=== PATIENT | female | born 1935 | race Caucasian/White ===

== ENCOUNTER 2016-11-04 18:29 | Inpatient (IN) | payer BC, MEDICARE ==
[~2016-11-04] VITALS: Ht 152.4 cm; Wt 73.0 kg
[~2016-11-04 18:29] MED LIST: ATOR40TA PO; CLOP75TA15 PO
--- NOTE | 2016-11-04 18:32 | NUR ---
pt daughter, fauzia galicia called and said thatthe pt pmd is paul alexander, at [facility].dr. maloney aware and called dr. alexander number.pt daughter phone is [phone]
--- NOTE | 2016-11-04 18:36 | NUR ---
Unable to reconcile home medications at this time. Unable to obtain information from patient or EMS.
--- NOTE | 2016-11-04 18:58 | NUR ---
REPORT GIVEN TO STARCHER AND TENTER RANGE FEEDER RN. PRBC's ARE READY ACCORDING TO LABORATORY CALL.
[2016-11-04] MEDS ORDERED: TRAZ-144 PO (19:08)
[2016-11-04] MEDS ORDERED: ACET-2154 PO (19:08)
[2016-11-04] MEDS ORDERED: OMEP20CA10 PO (19:08)
[2016-11-04] MEDS ORDERED: DULO30CA2 PO (19:08)
[2016-11-04] MEDS ORDERED: DICLOFENAC GEL TOP (19:08)
[2016-11-04] MEDS ORDERED: MULT-67 PO (19:08)
[2016-11-04] MEDS ORDERED: ADVAIR INH (19:08)
[2016-11-04] MEDS ORDERED: OLOP2.5D5 EACHEYE (19:08)
[2016-11-04] MEDS ORDERED: CYANOCOBALAMIN PO (19:08)
[2016-11-04] MEDS ORDERED: NORCO PO (19:08)
[2016-11-04] MEDS ORDERED: MAXZIDE (19:08)
[2016-11-04] MEDS ORDERED: FLUT9.9S EA NOSTRIL (19:08)
[2016-11-04] MEDS ORDERED: BUPR300T52 PO (19:08)
--- NOTE | 2016-11-04 19:08 | NUR ---
Spoke with pt's daughter Lynette via telephone, obtained list of home medications and updated pt's record accordingly.
--- NOTE | 2016-11-04 19:20 | NUR ---
Received report from GUERLINE Capps. Assumed care of pt at this time. Pt resting in position of comfort for self. Resp even and unlabored. No obvious signs of distress, awaiting further eval. Addendum: 11/04/16 at 2211 by DEION Pt on the monitor upon assuming care. Pt NSR intermittent ST on the monitor. Resp even and unlabored. O2 sats 98 on RA
[2016-11-04] MEDS ORDERED: GENTAMICIN SULFATE INJ 80 MG in IV DEXTROSE 5% 100 ML IV ONE (19:45)
[2016-11-04] MEDS ORDERED: IV NORMAL SALINE 1000 ML BAG IV ONE (19:45)
[2016-11-04] MEDS ORDERED: CEFTRIAXONE 1 G in IV DEXTROSE 5% 50 ML IV ONE (19:45)
[2016-11-04] MEDS ORDERED: VANCOMYCIN IV 1,000 MG in IV DEXTROSE 5% 250 ML IV ONE (19:45)
[2016-11-04 20:02] LABS: BASOPHILS # (AUTO) 0.2 K/uL (0.0-8.0); BASOPHILS % (AUTO) 1.2 % (0.0-2.0); EOSINOPHILS % (AUTO) 0.1 % (0.0-7.0); HEMOGLOBIN 13.8 G/DL (12.0-16.0); LYMPHOCYTES # (AUTO) 0.7 K/UL (0.8-4.8); LYMPHOCYTES % (AUTO) 3.7 % (20.5-51.5); MEAN CORPUSCULAR HEMOGLOBIN 30.9 UUG (27.0-31.0); MEAN CORPUSCULAR HGB CONC 34 g/dL (32.0-37.0); MEAN CORPUSCULAR VOLUME 91.5 FL (81.0-99.0); MONOCYTES # (AUTO) 1.3 K/UL (0.1-1.30); MONOCYTES % (AUTO) 7.1 % (0.0-11.0); NEUTROPHILS # (AUTO) 15.9 K/UL (1.8-8.9); NEUTROPHILS % (AUTO) 87.9 % (38.5-71.5); PLATELET COUNT (AUTO) 263 K/UL (150-450); RED BLOOD CELL COUNT(AUTO) 4.48 MIL/UL (4.2-5.4); WHITE BLOOD COUNT (AUTO) 18.1 K/UL (4.0-11.2)
[2016-11-04 20:04] LABS: CARBON DIOXIDE 22 mmol/L (21-32); CHLORIDE 100 mmol/L (98-107); CREATININE 2.7 mg/dL (0.6-1.3); GLUCOSE 109 mg/dL (74-106); POTASSIUM 3.5 mmol/L (3.5-5.1); UREA NITROGEN, BLOOD 46 mg/dL (7-18)
[2016-11-04 20:16] LABS: ALANINE AMINOTRANSFERASE 16 U/L (14-59); ALKALINE PHOSPHATASE 152 U/L (50-136); ASPARTATE AMINOTRANSFERASE 15 U/L (15-37); BILIRUBIN,DIRECT 0.2 mg/dL (0.0-0.2); BILIRUBIN,TOTAL 0.6 mg/dL (0.2-1.0); TOTAL PROTEIN, SERUM 7.1 g/dL (6.4-8.2)
[2016-11-04 20:19] LABS: BAND % (MANUAL) 3 % (0-10); LYMPHOCYTES % (MANUAL) 4 % (20-40); NEUTROPHILS % (MANUAL) 84 % (42-75)
[2016-11-04 20:20] LABS: MONOCYTES % (MANUAL) 9 % (2-10)
--- NOTE | 2016-11-04 21:00 | NUR ---
Pt resting in position of comfort for self with eyes closed. Resp even and unlabored. No obvious signs of distress at this time
[2016-11-04] MEDS ORDERED: CEFTRIAXONE 1 G VIAL ONE (21:42)
[2016-11-04] MEDS ORDERED: GENTAMICIN SULFATE 80 MG/2 ML VIAL ONE (21:44)
[2016-11-04 21:55] LABS: *BILIRUBIN,URIN NEGATIVE (NEGATIVE); *BLOOD, URINE 1+ (NEGATIVE); *CLARITY,URINE SLIGHTLY CLOUDY (CLEAR); *COLOR,URINE LIGHT YELLOW (YELLOW); *KETONES,URINE NEGATIVE (NEGATIVE); *PROTEIN,URINE 1+ (NEGATIVE); *UROBILINOGEN,URINE 0.2 E.U./dl (NORMAL); LEUKOCYTE ESTERASE ,URINE 3+ (NEGATIVE); NITRITE, URINE NEGATIVE (NEGATIVE); UGLUCOSE NEGATIVE (NEGATIVE)
[2016-11-04 22:04] LABS: BACTERIA,URINE MODERATE /HPF (NONE SEEN); MUCUS,URINE MODERATE /LPF (0-FEW); WBC,URINE 80-100 /HPF (0-3)
--- NOTE | 2016-11-04 22:05 | NUR ---
First ABT infusion completed, no adverse reactions noted. Second ABT infusion started, will monitor for any adverse reactions. Pt c/o being cold and has shivers. Re-checked temp and pt afebrile at this time. Pt given warm blankets. Pt repositioned for comfort. Admission pending.
[2016-11-04] MEDS ORDERED: ONDANSETRON IV *ER 4 MG/2 ML VIAL IV ONE (23:30)
[2016-11-04] MEDS ORDERED: MORPHINE SULFATE 4 MG/1 ML DISP.SYRIN IV ONE (23:30)
--- NOTE | 2016-11-04 23:38 | NUR ---
Pt c/o back pain. MD notified and pt medicated. Will monitor for effects of medication. Daughter arrived at bedside.
[2016-11-04] MEDS ORDERED: MORPHINE SULFATE 4 MG/1 ML DISP.SYRIN ONE (23:40)
[2016-11-04] MEDS ORDERED: ONDANSETRON 4 MG/2 ML VIAL ONE (23:40)
[2016-11-04] MEDS ORDERED: MORPHINE SULFATE 4 MG/1 ML DISP.SYRIN IV PRN (23:45)
[2016-11-04] MEDS ORDERED: ONDANSETRON 4 MG/2 ML VIAL IV PRN (23:45)
[2016-11-04] MEDS ORDERED: POTASSIUM CHLORIDE 20 MEQ in IV NS 1000 ML 1,000 ML IV PRN (23:45)
[2016-11-04] MEDS ORDERED: ACETAMINOPHEN 325 MG TABLET PO PRN (23:45)
[2016-11-05] VITALS (14 sets, daily range): BP systolic 63–120; BP diastolic 35–65
--- NOTE | 2016-11-05 | NUR ---
Second ABT completed, no adverse reactions noted. Pt sts pain improved with previous medication. No complaints at this time. Report called to GUERLINE Jewell. Preparing to transfer pt to the floor.
--- NOTE | 2016-11-05 00:20 | NUR ---
PT ADMITTED TO TELE FROM ED. PT IS A&OX4. RESP IS EVEN AND UNLABORED AT THIS TIME. RESP IS EVEN AND UNLABORED. NO SOB. NO ACUTE DISTRESS. PT WITH LEFT FA 18GAUGE IV, PATENT AND INTACT. PT WITH UROSTOMY POUCH, PATENT AND INTACT DRAINING YELLOW, CLEAR URINE. ORIENTED PT TO UNIT AND CALL LIGHT. CALL LIGHT KEPT WITHIN REACH. WILL CONT TO MONITOR.
[2016-11-05] MEDS: TRAZODONE 50 MG TABLET PO SCH ×2 (00:29→20:55)
[2016-11-05] MEDS: ACETAMINOPHEN 325 MG TABLET PO PRN ×3 (00:29→18:27)
[2016-11-05] MEDS ORDERED: ZOLPIDEM 5 MG TABLET PO PRN (00:30)
[2016-11-05] MEDS ORDERED: TRAZODONE 50 MG TABLET ONE (00:37)
[2016-11-05] MEDS ORDERED: ACETAMINOPHEN 325 MG TABLET ONE (00:37)
[2016-11-05] MEDS ORDERED: PIPERACILLIN/TAZO 2.25 GM VIAL ONE (00:49)
[2016-11-05] MEDS: PIPERACILLIN/TAZOBACTAM/D5W 2.25 G in PREMIXED 1 EACH IV SCH ×4 (01:02→21:34)
--- NOTE | 2016-11-05 06:48 | NUR ---
PT IS A&OX4. RESP IS EVEN AND UNLABORED. NO SOB. NO ACUTE DISTRESS. PT WITH LEFT FA 18GAUGE IV, PATENT AND INTACT. PT WITH UROSTOMY POUCH, PATENT AND INTACT DRAINING YELLOW, CLEAR URINE. VSS. CALL LIGHT WITH IN REACH. WILL CONT TO MONITOR.
[2016-11-05] MEDS ORDERED: Medication Not On Formulary EA (Multivitamins 1 EACH) PO SCH (09:00)
[2016-11-05] MEDS ORDERED: DULOXETINE 30 MG CAPSULE.DR PO SCH (09:00)
[2016-11-05] MEDS: MULTIVITAMINS,THERAPEUTIC TABLET PO SCH (09:21)
[2016-11-05] MEDS: CLOPIDOGREL 75 MG TABLET PO SCH (09:22)
[2016-11-05] MEDS: PANTOPRAZOLE SODIUM 40 MG TABLET.DR PO SCH (09:22)
[2016-11-05] MEDS: buPROPion XL 150 MG TAB.SR.24H PO SCH (09:22)
[2016-11-05 09:31] LABS: EOSINOPHILS # (AUTO) 0.1 K/uL (0.0-0.7); EOSINOPHILS % (AUTO) 0.8 % (0.0-7.0); HEMATOCRIT 37.7 % (37-47); HEMOGLOBIN 12.6 G/DL (12.0-16.0); LYMPHOCYTES # (AUTO) 0.6 K/UL (0.8-4.8); LYMPHOCYTES % (AUTO) 3.8 % (20.5-51.5); MEAN CORPUSCULAR HEMOGLOBIN 31.1 UUG (27.0-31.0); MEAN CORPUSCULAR HGB CONC 33 g/dL (32.0-37.0); MEAN CORPUSCULAR VOLUME 93.1 FL (81.0-99.0); MONOCYTES # (AUTO) 0.9 K/UL (0.1-1.30); NEUTROPHILS # (AUTO) 13.3 K/UL (1.8-8.9); NEUTROPHILS % (AUTO) 89.4 % (38.5-71.5); PLATELET COUNT (AUTO) 214 K/UL (150-450); RED BLOOD CELL COUNT(AUTO) 4.05 MIL/UL (4.2-5.4); WHITE BLOOD COUNT (AUTO) 14.9 K/UL (4.0-11.2)
[2016-11-05 09:38] LABS: ALANINE AMINOTRANSFERASE 19 U/L (14-59); ALKALINE PHOSPHATASE 119 U/L (50-136); ASPARTATE AMINOTRANSFERASE 13 U/L (15-37); BILIRUBIN,TOTAL 0.4 mg/dL (0.2-1.0); CARBON DIOXIDE 19 mmol/L (21-32); CHLORIDE 103 mmol/L (98-107); CHOLESTEROL 109 mg/dL (<200); CREATININE 3.1 mg/dL (0.6-1.3); GLUCOSE 192 mg/dL (74-106); HDL CHOLESTEROL 58 mg/dL (40-60); MAGNESIUM 1.9 mg/dL (1.8-2.4); PHOSPHOROUS 2.8 mg/dL (2.5-4.9); POTASSIUM 3.4 mmol/L (3.5-5.1); TOTAL PROTEIN, SERUM 6.1 g/dL (6.4-8.2); TRIGLYCERIDES 102 MG/DL (30-150); UREA NITROGEN, BLOOD 41 mg/dL (7-18)
[2016-11-05 09:45] LABS: THYROID STIMULATING HORMONE 0.587 mIU/mL (0.358-3.740)
[2016-11-05] MEDS ORDERED: VANCOMYCIN IV 1,250 MG in IV DEXTROSE 5% 500 ML IV ONE (10:00)
[2016-11-05] MEDS ORDERED: POTASSIUM CHLORIDE 20 MEQ TAB.PRT.SR PO ONE (12:00)
--- NOTE | 2016-11-05 12:52 | NUR ---
PT COMPLAINING OF CHILLS AND VERY COLD, TEMP TAKEN 99.6. WILL GIVE TYLENOL ORDERED
[2016-11-05 14:11] LABS: *BILIRUBIN,URIN NEGATIVE (NEGATIVE); *BLOOD, URINE 1+ (NEGATIVE); *CLARITY,URINE SLIGHTLY CLOUDY (CLEAR); *COLOR,URINE YELLOW (YELLOW); *KETONES,URINE NEGATIVE (NEGATIVE); *PROTEIN,URINE 1+ (NEGATIVE); *UROBILINOGEN,URINE 0.2 E.U./dl (NORMAL); LEUKOCYTE ESTERASE ,URINE 2+ (NEGATIVE); NITRITE, URINE NEGATIVE (NEGATIVE); UGLUCOSE NEGATIVE (NEGATIVE)
[2016-11-05 14:20] LABS: BACTERIA,URINE FEW /HPF (NONE SEEN); SQUAMOUS EPITHELIAL CELL,UR FEW /HPF (NONE SEEN); WBC,URINE 20-50 /HPF (0-3)
[2016-11-05 14:23] LABS: *CREATININE,URINE 53.3 mg/dL (30-125)
--- NOTE | 2016-11-05 15:04 | NUR ---
Clinical Pharmacy Note: Vancomycin Pharmacy to Dose Subjective: To start vancomycin in this 80 y/o female for indication of UTI. Pt is not on HD, currently in ARF Objective: height 152 cm weight 77kg BUN 41 Scr 2.7 (ARF) Wbc 14.9 temp 101.7 Assessment/Plan Due to advanced age and ARF, will dose by fall off level. One dose of 1250mg given today @1000. Random ordered for tomorrow with am labs. Will check level and re-dose as needed. Will continue to monitor
--- NOTE | 2016-11-05 15:35 | NUR ---
ASSIGNMENT OFFICER TAKING ROUTINE VITALS, PT BP WAS 78/41 AND WAS RE TAKEN 63/35, PT AWAKE, ALERT, ASYMPTOMATIC, DR SANCHEZ AWARE AND ORDERED 500 NS BOLUS. BOLUS STARTED, BP 67/44, WILL CONTINUE TO CLOSELY MONITOR
[2016-11-05] MEDS ORDERED: IV NORMAL SALINE 500 ML IV ONE (15:45)
--- NOTE | 2016-11-05 16:23 | NUR ---
500 BOLUS GIVEN, BP 71/43. AWARE AND GAVE ORDERS TO TRANSFER TO ICU. PT TRANSFERRED TO ICU BED 5
[2016-11-05] MEDS ORDERED: TRAMADOL HCL 50 MG TABLET PO PRN (18:00)
[2016-11-05] MEDS: TRAMADOL HCL 50 MG TABLET PO PRN (18:35)
--- NOTE | 2016-11-05 19:30 | NUR ---
Report received. Patient VIK, hard of hearing but able to follow commands well. NAD noted. Seen by Emili IGLESIAS. Assessment done. See [facility] flow sheet for details. Addendum: 11/05/16 at 2352 by BONNIE CHU RN Amended: Links added.
--- NOTE | 2016-11-05 20:00 | NUR ---
Patient's daughter Lynette massey. Routine CCU care discussed with her and the patient. Both verbalized understanding. Addendum: 11/05/16 at 2358 by BONNIE CHU RN Amended: Links added.
[2016-11-05] MEDS: FLUTICASONE/VILANTEROL 1 EACH BLST.W.DEV INH SCH (20:30)
--- NOTE | 2016-11-05 20:30 | NUR ---
Dose of Brio-Ellipta given per patient's request. New IV inserted to LFA with angio # 20. Patient cooperative.
[2016-11-05] MEDS: POTASSIUM CHLORIDE 20 MEQ in IV D5/ 0.9% NACL 1,000 ML IV PRN (20:40)
--- NOTE | 2016-11-05 20:40 | NUR ---
IV started at 75 ml/H as ordered. Daughter remains at bedside. Requested for cereal and fruits. Ate well without problems. Addendum: 11/06/16 at 0254 by BONNIE CHU RN Amended: Links added. Addendum: 11/06/16 at 0258 by BONNIE CHU RN Amended: Links added.
[2016-11-05] MEDS: ATORVASTATIN 40 MG TABLET PO SCH (20:55)
[2016-11-05] MEDS ORDERED: FLUTICASONE/SALMETEROL 250/50 INHALER INH SCH (21:00)
[2016-11-06] VITALS (20 sets, daily range): BP systolic 84–118; BP diastolic 33–72
--- NOTE | 2016-11-06 01:40 | NUR ---
Patient called; shivering. Temp rechecked = 97.4. Requesting for Tylenol; given. Repositioned for comfort. Urostomy draining well. Addendum: 11/06/16 at 0258 by BONNIE CHU RN Amended: Links added.
[2016-11-06] MEDS: ACETAMINOPHEN 325 MG TABLET PO PRN ×4 (01:45→20:36)
--- NOTE | 2016-11-06 02:30 | NUR ---
Sleeping after Tylenol. VS stable. Addendum: 11/06/16 at 0259 by BONNIE CHU RN Amended: Links added. Addendum: 11/06/16 at 0301 by BONNIE CHU RN Amended: Links added.
[2016-11-06 05:33] LABS: EOSINOPHILS % (AUTO) 0.5 % (0.0-7.0); HEMATOCRIT 32.3 % (37-47); HEMOGLOBIN 10.9 G/DL (12.0-16.0); LYMPHOCYTES # (AUTO) 0.6 K/UL (0.8-4.8); LYMPHOCYTES % (AUTO) 6.2 % (20.5-51.5); MEAN CORPUSCULAR HEMOGLOBIN 31.6 UUG (27.0-31.0); MEAN CORPUSCULAR HGB CONC 34 g/dL (32.0-37.0); MEAN CORPUSCULAR VOLUME 93.6 FL (81.0-99.0); MONOCYTES # (AUTO) 0.8 K/UL (0.1-1.30); MONOCYTES % (AUTO) 8.5 % (0.0-11.0); NEUTROPHILS # (AUTO) 8.4 K/UL (1.8-8.9); NEUTROPHILS % (AUTO) 84.8 % (38.5-71.5); PLATELET COUNT (AUTO) 173 K/UL (150-450); RED BLOOD CELL COUNT(AUTO) 3.45 MIL/UL (4.2-5.4); WHITE BLOOD COUNT (AUTO) 9.8 K/UL (4.0-11.2)
[2016-11-06 05:38] LABS: CARBON DIOXIDE 20 mmol/L (21-32); CHLORIDE 104 mmol/L (98-107); GLUCOSE 122 mg/dL (74-106); MAGNESIUM 1.8 mg/dL (1.8-2.4); PHOSPHOROUS 3.5 mg/dL (2.5-4.9); UREA NITROGEN, BLOOD 38 mg/dL (7-18)
[2016-11-06] MEDS: PIPERACILLIN/TAZOBACTAM/D5W 2.25 G in PREMIXED 1 EACH IV SCH ×3 (05:56→21:53)
--- NOTE | 2016-11-06 06:00 | NUR ---
Bath given. BPs in the 80's systole. Patient AA, skin warm and dry. Denies any pain or discomfort. Addendum: 11/06/16 at 0658 by BONNIE CHU RN Amended: Links added.
--- NOTE | 2016-11-06 06:10 | NUR ---
Spoke to Peg Thomas NP about patient's hypotension and over all condition. Orders received. NS 500 ml IV bolus started. Addendum: 11/06/16 at 0700 by BONNIE CHU RN Amended: Links added. Addendum: 11/06/16 at 0701 by BONNIE CHU RN Amended: Links added.
[2016-11-06] MEDS ORDERED: IV NORMAL SALINE 500 ML IV ONE (06:15)
[2016-11-06] MEDS ORDERED: NOREPINEPHRINE BITARTRATE 8 MG in IV DEXTROSE 5% 500 ML IV PRN (06:15)
[2016-11-06] MEDS: PANTOPRAZOLE SODIUM 40 MG TABLET.DR PO SCH (06:35)
--- NOTE | 2016-11-06 07:00 | NUR ---
BP improved with NS bolus. Sleeping. NAD noted.
[2016-11-06] MEDS: CLOPIDOGREL 75 MG TABLET PO SCH ×2 (08:46→09:42)
[2016-11-06] MEDS: MULTIVITAMINS,THERAPEUTIC TABLET PO SCH (08:47)
[2016-11-06] MEDS: FLUTICASONE/VILANTEROL 1 EACH BLST.W.DEV INH SCH (08:50)
[2016-11-06] MEDS: buPROPion XL 150 MG TAB.SR.24H PO SCH (09:18)
[2016-11-06 09:21] LABS: IRON, SERUM 10 ug/dL (50-175)
[2016-11-06] MEDS: POTASSIUM CHLORIDE 20 MEQ in IV D5/ 0.9% NACL 1,000 ML IV PRN (10:35)
[2016-11-06] MEDS: SOD FERRIC GLUC COMPLX/SUCROSE 125 MG in IV NORMAL SALINE 100 ML IV SCH (15:07)
[2016-11-06] MEDS: TRAMADOL HCL 50 MG TABLET PO PRN (15:33)
--- NOTE | 2016-11-06 15:47 | NUR ---
Clinical Pharmacy Note: Vancomycin Pharmacy to Dose Subjective: To continue vancomycin in this 80 y/o female for indication of UTI. Pt is not on HD, currently in ARF Objective: height 152 cm weight 77kg BUN 38 Scr 3.0 (ARF) Wbc 9.8 temp 99.3 vancomycin trough today at 0600:12.1 Assessment/Plan Due to advanced age and ARF, will dose by fall off level. One dose of 1250mg given today @1600. Random ordered for tomorrow with am labs. Will check level and re-dose as needed. Will continue to monitor
[2016-11-06] MEDS ORDERED: VANCOMYCIN IV 1,250 MG in IV DEXTROSE 5% 500 ML IV ONE (16:00)
--- NOTE | 2016-11-06 19:30 | NUR ---
Report received. Patient AAO, denies any discomfort. NAD noted. PM care done. Patient cooperative and appreciative of care, but appears depressed. Assessment completed. Addendum: 11/06/16 at 2027 by BONNIE CHU RN Amended: Links added.
--- NOTE | 2016-11-06 20:00 | NUR ---
Radha visited. Informed that patient is now a telemetry status. Addendum: 11/06/16 at 2028 by BONNIE CHU RN Amended: Links added.
--- NOTE | 2016-11-06 20:35 | NUR ---
Tylenol given for generalized discomfort. Patient appears cooperative but withdrawn. Both daughters looking at IV bags that are hanging; claimed they spoke with MDs today, but questioning why she got a dose of Vancomycin. Demanded to talk to Emili TELEPHONE BETTING CLERK despite explanation offered. Emili paged.
[2016-11-06] MEDS: TRAZODONE 50 MG TABLET PO SCH (20:38)
[2016-11-06] MEDS: ATORVASTATIN 40 MG TABLET PO SCH (20:38)
--- NOTE | 2016-11-06 21:00 | NUR ---
Still awaiting for call back from Emili IGLESIAS. Patient now sleeping. NAD.
--- NOTE | 2016-11-06 21:25 | NUR ---
Emili ELECTRICAL PRODUCTS ENGINEER called back, but both daughters have left. Emili informed of daughters' queries.
[2016-11-07] VITALS (8 sets, daily range): BP systolic 90–118; BP diastolic 51–69
--- NOTE | 2016-11-07 02:00 | NUR ---
Awake, c/o generalized discomfort; with audible wheezing. O2 NC 2 L started. HOB elevated above 30 degrees. Requesting for Tylenol and hot tea. Medication given. Hot tea served. Patient states she uses Advair puffs at home and works best for her. Patient advised that she's on Breo-Ellipta. O2 sat 94-95% on 2 L NC. Addendum: 11/07/16 at 0424 by BONNIE CHU RN Amended: Links added.
[2016-11-07] MEDS: ACETAMINOPHEN 325 MG TABLET PO PRN ×4 (02:03→23:30)
--- NOTE | 2016-11-07 02:30 | NUR ---
Patient claims she feels better with O2 NC. Repositioned for comfort. Back to sleep. Addendum: 11/07/16 at 0428 by BONNIE CHU RN Amended: Links added.
[2016-11-07] MEDS: PIPERACILLIN/TAZOBACTAM/D5W 2.25 G in PREMIXED 1 EACH IV SCH ×3 (05:23→21:01)
[2016-11-07 05:40] LABS: CARBON DIOXIDE 16 mmol/L (21-32); CHLORIDE 105 mmol/L (98-107); CREATININE 2.8 mg/dL (0.6-1.3); GLUCOSE 104 mg/dL (74-106); MAGNESIUM 1.8 mg/dL (1.8-2.4); PHOSPHOROUS 3.2 mg/dL (2.5-4.9); UREA NITROGEN, BLOOD 30 mg/dL (7-18); VANCOMYCIN,RANDOM 22.4 ug/mL (18.0-26.0)
[2016-11-07 05:42] LABS: EOSINOPHILS # (AUTO) 0.1 K/uL (0.0-0.7); HEMATOCRIT 33.3 % (37-47); HEMOGLOBIN 11.1 G/DL (12.0-16.0); LYMPHOCYTES # (AUTO) 0.7 K/UL (0.8-4.8); LYMPHOCYTES % (AUTO) 10.1 % (20.5-51.5); MEAN CORPUSCULAR HEMOGLOBIN 30.9 UUG (27.0-31.0); MEAN CORPUSCULAR HGB CONC 33 g/dL (32.0-37.0); MEAN CORPUSCULAR VOLUME 93.1 FL (81.0-99.0); MONOCYTES # (AUTO) 0.8 K/UL (0.1-1.30); MONOCYTES % (AUTO) 11.3 % (0.0-11.0); NEUTROPHILS # (AUTO) 5.5 K/UL (1.8-8.9); NEUTROPHILS % (AUTO) 77.6 % (38.5-71.5); PLATELET COUNT (AUTO) 164 K/UL (150-450); RED BLOOD CELL COUNT(AUTO) 3.58 MIL/UL (4.2-5.4); WHITE BLOOD COUNT (AUTO) 7.1 K/UL (4.0-11.2)
--- NOTE | 2016-11-07 06:00 | NUR ---
Sleeping, easily arouses to name. ANTHONY. Refused bath and am care. Remains on O2 @ 2L NC.; sat 95-98%. Addendum: 11/07/16 at 0649 by BONNIE CHU RN Amended: Links added.
[2016-11-07] MEDS: PANTOPRAZOLE SODIUM 40 MG TABLET.DR PO SCH (06:18)
[2016-11-07] MEDS: POTASSIUM CHLORIDE 20 MEQ in IV D5/ 0.9% NACL 1,000 ML IV PRN (06:19)
--- NOTE | 2016-11-07 07:30 | NUR ---
Report received.Pt remains awake,alert,oriented.Cooperative,appreciative of care.Denies pain,discomfort.SR on monitor.O2 at 2liters via NC tolerated well.AM care completed with moderate assistance.Spoke with pt daughter Teo,updated on pt status.
[2016-11-07] MEDS: FLUTICASONE/VILANTEROL 1 EACH BLST.W.DEV INH SCH (09:00)
[2016-11-07] MEDS: buPROPion XL 150 MG TAB.SR.24H PO SCH (09:24)
[2016-11-07] MEDS: MULTIVITAMINS,THERAPEUTIC TABLET PO SCH (09:25)
[2016-11-07] MEDS ORDERED: MAGNESIUM SULFATE/D5W 100 ML IV SCH (09:30)
[2016-11-07] MEDS: ADVAIR INH SCH ×2 (09:41→17:03)
[2016-11-07] MEDS: MDI INH SCH ×2 (09:41→17:03)
--- NOTE | 2016-11-07 10:00 | NUR ---
Pt assisted to chair,tolerated well.Pt daughter at bedside.
[2016-11-07] MEDS ORDERED: ALBUTEROL SULFATE 1.25 MG/3 ML NEBU NEB PRN (11:00)
[2016-11-07] MEDS ORDERED: ALBUTEROL SULFATE 8 GM HFA.AER.AD IH PRN (11:00)
--- NOTE | 2016-11-07 11:17 | NUR ---
BROUGHT PT TO ROOM 203 IN WHEELCHAIR, NO SIGNS OF ACUTE DISTRESS, REQUESTED TO GO TO RESTROOM TO TRY AND HAVE BM. SR ON TELE MONITOR, IV INTACT, UROSTOMY INTACT, NO SIGNS OF LEAKING. DAUGHTER AT BEDSIDE, CALL LIGHT IN REACH, WILL CONTINUE TO MONITOR
[2016-11-07] MEDS ORDERED: BISACODYL 10 MG SUPP.RECT RC PRN (11:30)
[2016-11-07] MEDS ORDERED: ALBUTEROL SULFATE 2.5 MG/3 ML NEBU NEB PRN (11:30)
--- NOTE | 2016-11-07 13:11 | NUR ---
PT AMBULATING IN HALLWAY WITH FWW AND DAUGHTER. NO DIZZINESS OR SOB
[2016-11-07] MEDS: SOD FERRIC GLUC COMPLX/SUCROSE 125 MG in IV NORMAL SALINE 100 ML IV SCH (14:47)
--- NOTE | 2016-11-07 16:49 | NUR ---
pt iv leaking while ferrlicit running. stopped iv, attempted to reinsert iv 5 times by [address] aware and ordered midline insertion. will resume ferrlicit when midline inserted. midline nurse contacted, will be here in 1 hour
--- NOTE | 2016-11-07 18:12 | NUR ---
BOBO PICC LINE NURSE INSERTED 18G POWERGLIDE MIDLINE ON R BASILIC VEIN, 10CM LENGTH. NO APPARENT DIFFICULTY DURING INSERTION. FLUSH AND BLOOD DRAW EXCELLENT.
[2016-11-07] MEDS: ATORVASTATIN 40 MG TABLET PO SCH (20:53)
[2016-11-07] MEDS: TRAZODONE 50 MG TABLET PO SCH (20:53)
[2016-11-08] VITALS: BP 142/68
[2016-11-08 04:00] VITALS: BP 108/51
[2016-11-08] MEDS: PIPERACILLIN/TAZOBACTAM/D5W 2.25 G in PREMIXED 1 EACH IV SCH (05:38)
[2016-11-08] MEDS: ACETAMINOPHEN 325 MG TABLET PO PRN ×2 (05:46→15:57)
[2016-11-08] MEDS: PANTOPRAZOLE SODIUM 40 MG TABLET.DR PO SCH (06:23)
--- NOTE | 2016-11-08 06:35 | NUR ---
PT IN BED, A/O, AMBULATED TO BATHROOM. ON SR ON TELE, IN NO ACUTE SIGNS OF DISTRESS. C/O LEFT LEG PAIN AND HEADACHE. GIVEN WITH TYLENOL PER PT REQUEST, AND WAS HELPFUL. SAFETY MAINTAINED. CALL LIGHT WITHIN REACH.
[2016-11-08 07:11] LABS: ALANINE AMINOTRANSFERASE 29 U/L (14-59); ALKALINE PHOSPHATASE 171 U/L (50-136); ASPARTATE AMINOTRANSFERASE 26 U/L (15-37); BILIRUBIN,TOTAL 0.3 mg/dL (0.2-1.0); CARBON DIOXIDE 17 mmol/L (21-32); CHLORIDE 107 mmol/L (98-107); CREATININE 2.5 mg/dL (0.6-1.3); GLUCOSE 95 mg/dL (74-106); MAGNESIUM 2.3 mg/dL (1.8-2.4); PHOSPHOROUS 3.1 mg/dL (2.5-4.9); POTASSIUM 4.2 mmol/L (3.5-5.1); UREA NITROGEN, BLOOD 26 mg/dL (7-18)
[2016-11-08 07:16] LABS: BASOPHILS % (AUTO) 0.2 % (0.0-2.0); EOSINOPHILS # (AUTO) 0.1 K/uL (0.0-0.7); EOSINOPHILS % (AUTO) 0.9 % (0.0-7.0); HEMATOCRIT 33.8 % (37-47); HEMOGLOBIN 11.5 G/DL (12.0-16.0); LYMPHOCYTES % (AUTO) 15.8 % (20.5-51.5); MEAN CORPUSCULAR HEMOGLOBIN 31.8 UUG (27.0-31.0); MEAN CORPUSCULAR HGB CONC 34 g/dL (32.0-37.0); MEAN CORPUSCULAR VOLUME 93.7 FL (81.0-99.0); MONOCYTES # (AUTO) 0.9 K/UL (0.1-1.30); MONOCYTES % (AUTO) 14.1 % (0.0-11.0); NEUTROPHILS # (AUTO) 4.2 K/UL (1.8-8.9); WHITE BLOOD COUNT (AUTO) 6.2 K/UL (4.0-11.2)
[2016-11-08 07:26] LABS: PLATELET COUNT (AUTO) 209 K/UL (150-450)
--- NOTE | 2016-11-08 08:00 | NUR ---
COMPLET SHOWER GIVEN WITH MIN ASSIST, UROSTOMY DRESSING ALSO CHANGED, NO SIGNS OF PAIN OR DISTRESS
[2016-11-08] MEDS: ADVAIR INH SCH (08:37)
[2016-11-08] MEDS: MULTIVITAMINS,THERAPEUTIC TABLET PO SCH (08:37)
[2016-11-08] MEDS: MDI INH SCH (08:37)
[2016-11-08] MEDS: buPROPion XL 150 MG TAB.SR.24H PO SCH (08:38)
[2016-11-08] MEDS: FLUTICASONE/VILANTEROL 1 EACH BLST.W.DEV INH SCH (08:40)
[2016-11-08] MEDS ORDERED: CLOPIDOGREL 75 MG TABLET PO SCH (09:00)
[2016-11-08] MEDS ORDERED: FLUT10.62 INH (09:23)
--- NOTE | 2016-11-08 10:00 | NUR ---
FAMILY IN VERY INVOLVED WITH CARE
[2016-11-08] MEDS ORDERED: PATIENT MAY USE OWN MED- MD OK IH SCH (10:15)
[2016-11-08 11:53] VITALS: BP 118/58
[2016-11-08] MEDS ORDERED: PIPERACILLIN/TAZOBACTAM/D5W 2.25 G in PREMIXED 1 EACH IV SCH (12:00)
--- NOTE | 2016-11-08 12:07 | NUR ---
SEEN BY DR MARTINEZ PLAN DC TO REHAB UNIT TODAY PATIENT AND FAMILY MADE AWARE. CASE JULES ALSO AWARE
[2016-11-08] MEDS ORDERED: PIPE2.257 IV (14:18)
[2016-11-08] MEDS ORDERED: ZOLP5TAB8 PO (14:18)
[2016-11-08] MEDS ORDERED: TRAM50TA2 PO (14:18)
[2016-11-08] MEDS ORDERED: CLOP75TA15 PO (14:18)
[2016-11-08] MEDS ORDERED: ATOR10TA PO (14:18)
[2016-11-08] MEDS ORDERED: ALBU2.5V7 NEB (14:18)
[2016-11-08] MEDS ORDERED: BISA10SU12 RC (14:18)
--- NOTE | 2016-11-08 15:48 | NUR ---
REPORT GIVEN TO ACUTE SPINNING ROOM WORKER. TRANSFERRED PATIENT VIA WHEELCHAIR WITH FAMILY
[2016-11-08] MEDS ORDERED: FLUT1DIS28 INH (18:53)
== END 2016-11-08 16:10 | DRG 871 ==
LOC: ER 18:30 → TELE 22:13 → CCU 11-05 16:21 → TELE 11-07 11:30
PROVIDERS: ADMIT Internal Medicine; ATTEND Internal Medicine
PROC: 05H533Z Insertion of Infusion Device into Right Subclavian Vein, Percutaneous Approach (ICD-10-PCS; principal; 2016-11-07)
DX: A41.9 Sepsis, unspecified organism (principal); N17.0 Acute kidney failure with tubular necrosis; E43 Unspecified severe protein-calorie malnutrition; G92 Toxic encephalopathy; N39.0 Urinary tract infection, site not specified; K57.92 Diverticulitis of intestine, part unspecified, without perforation or abscess without bleeding; I13.0 Hypertensive heart and chronic kidney disease with heart failure and stage 1 through stage 4 chronic kidney disease, or unspecified chronic kidney disease; N13.30 Unspecified hydronephrosis; J98.11 Atelectasis; E87.1 Hypo-osmolality and hyponatremia; I50.32 Chronic diastolic (congestive) heart failure; G43.909 Migraine, unspecified, not intractable, without status migrainosus; K21.9 Gastro-esophageal reflux disease without esophagitis; Z90.6 Acquired absence of other parts of urinary tract; Z87.440 Personal history of urinary (tract) infections; Z85.51 Personal history of malignant neoplasm of bladder; Z79.899 Other long term (current) drug therapy; Z98.1 Arthrodesis status; Z88.8 Allergy status to other drugs, medicaments and biological substances; R32 Unspecified urinary incontinence; Z93.6 Other artificial openings of urinary tract status; E11.22 Type 2 diabetes mellitus with diabetic chronic kidney disease; E11.65 Type 2 diabetes mellitus with hyperglycemia; N18.9 Chronic kidney disease, unspecified; Z87.891 Personal history of nicotine dependence; M19.90 Unspecified osteoarthritis, unspecified site; E87.6 Hypokalemia; E78.5 Hyperlipidemia, unspecified; E66.3 Overweight; D50.9 Iron deficiency anemia, unspecified; I48.0 Paroxysmal atrial fibrillation; I70.0 Atherosclerosis of aorta; I11.0 Hypertensive heart disease with heart failure
CPT/HCPCS: 36415; 70030-TC; 71010; 76770; 82306; 83550; 83605; 83735; 84100; 84156; 84300; 84443; 85025; 85730; 87040; 87077; 87086; 93005; 97116; 97161; 97530; A4663; J0696; J1580; J2270; J2405; J2543; J2916; J3370; J3475; J3480; J3490; J7030; J7040; J7042; J7060

== ENCOUNTER 2016-11-08 14:08 | Inpatient (IN) | payer MEDICARE ==
[~2016-11-08] VITALS: Ht 152.4 cm; Wt 72.6 kg
[~2016-11-08 14:08] MED LIST changes: +ACET-2154 PO; +ADVAIR INH; +BUPR300T52 PO; +CYANOCOBALAMIN PO; +DICLOFENAC GEL TOP; +DULO30CA2 PO; +FLUT10.62 INH; +FLUT9.9S EA NOSTRIL; +MAXZIDE; +MULT-67 PO; +NORCO PO; +OLOP2.5D5 EACHEYE; +OMEP20CA10 PO; +TRAZ-144 PO
[2016-11-08] MEDS ORDERED: ALBU2.5V7 NEB (14:18)
[2016-11-08] MEDS ORDERED: ZOLP5TAB8 PO (14:18)
[2016-11-08] MEDS ORDERED: BISA10SU12 RC (14:18)
[2016-11-08] MEDS ORDERED: TRAM50TA2 PO (14:18)
[2016-11-08] MEDS ORDERED: CLOP75TA15 PO (14:18)
[2016-11-08] MEDS ORDERED: ATOR10TA PO (14:18)
[2016-11-08] MEDS ORDERED: PIPE2.257 IV (14:18)
[2016-11-08 16:00] VITALS: BP 139/76
[2016-11-08] MEDS ORDERED: Z GUARD REMEDY PASTE 57 GM TUBE TOP PRN (17:45)
[2016-11-08] MEDS ORDERED: ALBUTEROL SULFATE 2.5 MG/3 ML NEBU NEB PRN (18:15)
[2016-11-08] MEDS ORDERED: FLUTICASONE PROPIONATE 44 MCG INH PRN (18:15)
[2016-11-08] MEDS ORDERED: BISACODYL 10 MG SUPP.RECT RC PRN (18:15)
[2016-11-08] MEDS ORDERED: ZOLPIDEM 5 MG TABLET PO PRN (18:15)
[2016-11-08] MEDS ORDERED: TRAMADOL HCL 50 MG TABLET PO PRN (18:15)
--- NOTE | 2016-11-08 18:27 | NUR ---
Report received from RN on M/S floor, Darcy. To receive patient to room 103. Information and SBAR received and verified. Orders received from Dr. Lund and Dr. Vega. No further questions at this time. Patient came to unit via wheelchair, with 2 daughters. Patient transferred from wheelchair to chair in room with supervision via walker. No complaints of pain or signs of acute distress noted. All questions and needs met at this time. Call light placed within reach of patient. Safety and fall precautions maintained. Explained to patient and family members need to call nursing station to be supervised to ambulate or stand, not to ambulate on her own. Patient and family members verbalized understanding. No other questions from patient or family members at this time.
[2016-11-08] MEDS ORDERED: FLUT1DIS28 INH (18:53)
[2016-11-08] MEDS ORDERED: FLUTICASONE/SALMETEROL 250/50 INHALER INH SCH (19:00)
--- NOTE | 2016-11-08 19:20 | NUR ---
Received report from GUERLINE Machado. Pt currently in the bathroom having diarrhea. Daughter at the bedside. Pt is AOX4 ambulates to restroom independently. Pt has urostomy bag attached to aguilar bag. Assessment performed: Lungs sounds clear but diminished at the bases. Requested tea and sugar. Per pt, she takes care of her urostomy, offered help as needed, verbalized understanding.Denies any pain. Observed some bruises at bilateral arms (from IV per pt). Pt has Rt Midline, flushing well. Requested for lomotil for diarrhea, spoke to Dr. Lund and obtained orders for Lomotil.
[2016-11-08 20:00] VITALS: BP 134/77
[2016-11-08] MEDS ORDERED: PIPERACILLIN/TAZOBACTAM/D5W 2.25 G in PREMIXED 1 EACH IV SCH (20:00)
[2016-11-08] MEDS: TRAZODONE 50 MG TABLET PO SCH (21:34)
[2016-11-08] MEDS: ATORVASTATIN 10 MG TABLET PO SCH (21:34)
[2016-11-08] MEDS: ACIDOPHILUS/BULGARICUS CHEW TAB PO SCH (21:38)
[2016-11-08] MEDS: DIPHENOXYLATE HCL/ATROP SULF TABLET PO PRN (21:41)
[2016-11-08] MEDS ORDERED: DIPHENOXYLATE HCL/ATROP SULF TABLET ONE (21:47)
[2016-11-08] MEDS: FLOVENT 110 MCG INH PRN (21:51)
--- NOTE | 2016-11-08 22:00 | NUR ---
Lomotil was given as ordered. Hanged antibiotic (Zosyn was changed to Rocephin) Rocephin 1gm/50mls at 100mls/hr to rt midline. An hour ago given night meds including Trazadone for her sleep. Given Tylenol for leg pain.
[2016-11-08] MEDS ORDERED: CEFTRIAXONE 1 G VIAL ONE (22:07)
[2016-11-08] MEDS: ACETAMINOPHEN 325 MG TABLET PO PRN (22:20)
[2016-11-08] MEDS: CEFTRIAXONE 1 G in IV DEXTROSE 5% 50 ML IV SCH (22:24)
[2016-11-09] MEDS ORDERED: PIPERACILLIN/TAZO/D5W 2.25 GM FROZ.PIGGY IV SCH
--- NOTE | 2016-11-09 | NUR ---
Pt is resting comfortably. Breathing normally.
--- NOTE | 2016-11-09 04:00 | NUR ---
Resting/sleeping continuously.Continue rounds/monitor.
[2016-11-09] MEDS: ACIDOPHILUS/BULGARICUS CHEW TAB PO SCH ×3 (05:45→21:04)
[2016-11-09] MEDS: ACETAMINOPHEN 325 MG TABLET PO PRN (05:45)
[2016-11-09] MEDS: ADVAIR INH SCH ×2 (05:50→17:19)
[2016-11-09] MEDS: FLOVENT 110 MCG INH PRN ×2 (05:50→17:20)
--- NOTE | 2016-11-09 06:00 | NUR ---
Pt awake alert oriented x 4, given am meds including PRN Tylenol 650mg/po for left hop pain 11/01 non radiating, it started since she came to this hospital according to her. Offered to wash up or toothbrush, refused for now but it will do it later. Reviewed my goals for her and she mentioned her goals to me, she expressed excitement for her physical therapy. Her daughter will be bringing her some pants and and shoes.
--- NOTE | 2016-11-09 07:15 | NUR ---
Patient received from night nurse RN. Patient resting comfortably in bed, no signs of acute distress noted. VS WNL, no complaints of pain at this time. No other verbalized needs at this time. IV midline site to right UA, no signs of redness or swelling noted. IVF running at KVO rate. All safety and fall precautions maintained. Call light within reach.
[2016-11-09 07:30] VITALS: BP 115/56
[2016-11-09 07:33] LABS: BASOPHILS % (AUTO) 0.1 % (0.0-2.0); EOSINOPHILS # (AUTO) 0.1 K/uL (0.0-0.7); EOSINOPHILS % (AUTO) 1.9 % (0.0-7.0); HEMATOCRIT 34.7 % (37-47); HEMOGLOBIN 11.5 G/DL (12.0-16.0); LYMPHOCYTES # (AUTO) 1.1 K/UL (0.8-4.8); LYMPHOCYTES % (AUTO) 16.1 % (20.5-51.5); MEAN CORPUSCULAR HGB CONC 33 g/dL (32.0-37.0); MEAN CORPUSCULAR VOLUME 93.4 FL (81.0-99.0); MONOCYTES # (AUTO) 0.9 K/UL (0.1-1.30); NEUTROPHILS # (AUTO) 4.6 K/UL (1.8-8.9); NEUTROPHILS % (AUTO) 68.9 % (38.5-71.5); PLATELET COUNT (AUTO) 238 K/UL (150-450); RED BLOOD CELL COUNT(AUTO) 3.72 MIL/UL (4.2-5.4); WHITE BLOOD COUNT (AUTO) 6.7 K/UL (4.0-11.2)
[2016-11-09 07:51] LABS: CARBON DIOXIDE 17 mmol/L (21-32); CHLORIDE 109 mmol/L (98-107); CHOLESTEROL 106 mg/dL (<200); CREATININE 2.8 mg/dL (0.6-1.3); GLUCOSE 98 mg/dL (74-106); HDL CHOLESTEROL 38 mg/dL (40-60); MAGNESIUM 2.2 mg/dL (1.8-2.4); PHOSPHOROUS 3.3 mg/dL (2.5-4.9); POTASSIUM 3.7 mmol/L (3.5-5.1); TRIGLYCERIDES 132 MG/DL (30-150); UREA NITROGEN, BLOOD 22 mg/dL (7-18)
[2016-11-09] MEDS: DULOXETINE 30 MG CAPSULE.DR PO SCH (08:26)
[2016-11-09] MEDS: MULTIVITAMINS,THERAPEUTIC TABLET PO SCH (08:26)
[2016-11-09] MEDS: buPROPion XL 150 MG TAB.SR.24H PO SCH (08:26)
[2016-11-09] MEDS ORDERED: ACIDOPHILUS/BULGARICUS CHEW TAB PO SCH (09:00)
[2016-11-09] MEDS ORDERED: Medication Not On Formulary EA (Multivitamins 1 EACH) PO SCH (09:00)
[2016-11-09] MEDS: DIPHENOXYLATE HCL/ATROP SULF TABLET PO PRN (14:51)
--- NOTE | 2016-11-09 17:40 | NUR ---
1330 ASSUMED CARE FOR PT. PT. OOB TO CHAIR. DISCUSSED CARE PLAN. PT. PERFORMING OWN ADLS. ENC. TO CALL FOR ASSIST. 1729 PT. DISCOVERED PAINFUL REDNESS/LUMP/RASH TO LEFT ARM. WARM PACK APPLIED CONTINUE TO MONITOR. . GOOD APPETITE. UROSTOMY SELF CARE. Addendum: 11/09/16 at 1758 by ADRIAN JARVIS RN PT. NOW STATES MODERATE PAIN TO LEFT ARM AND CAN BE FELT UP THE ARM ON TOUCH. CALL PLACED TO
--- NOTE | 2016-11-09 19:30 | NUR ---
RECEIVED PATIENT SEATED IN THE CHAIR, MIDLINE RIGHT UPPER ARM INTACT, PATENT PREFER TO DO HER OWN UROSTOMY CARE, HUYNH BAG DRAINING WITH YELLOW COLOR URINE IN MODERATE AMOUNT. PATIENT LEFT ARM LUMP IS PRESENT WITH SLIGHT REDNESS NOTED, SWELLING CONTAIN ONLY ON THE SITE, NO FURTHER SWELLING NOTED AT THIS TIME, SKIN WARM AND DRY, COLOR WNL. PATIENT COMPLAIN OF PAIN WENT TOUCH THE SITE. DUPLEX STUDY HAS BEEN ORDERED, AND ORDER ROUTINE, WAITING FOR THE TECH.
[2016-11-09 20:00] VITALS: BP 143/81
[2016-11-09] MEDS: TRAZODONE 50 MG TABLET PO SCH (20:36)
[2016-11-09] MEDS: CEFTRIAXONE 1 G in IV DEXTROSE 5% 50 ML IV SCH (20:36)
[2016-11-09] MEDS: ATORVASTATIN 10 MG TABLET PO SCH (20:36)
--- NOTE | 2016-11-10 05:41 | NUR ---
PATIENT SLEPT MOST OF THE NIGHT, NO SOB NO CHEST PAIN NOTED, NO COMPLAIN OF PAIN AT THIS TIME, LEFT ARM LUMP STILL PRESENT REDNESS CONTAIN ON THE SITE, LEFT ARM SKIN WARM AND DRY, NO SIGNIFICANT CHANGES NOTED. AWAITING FOR DOPPLER STUDY TO BE DONE. R UPPER ARM MIDLINE INTACT, PATENT, ASSISTED WITH TOILETING, KEPT CLEAN AND DRY.
[2016-11-10] MEDS: ACIDOPHILUS/BULGARICUS CHEW TAB PO SCH ×3 (06:06→20:22)
[2016-11-10 08:00] VITALS: BP 134/79
[2016-11-10] MEDS: DULOXETINE 30 MG CAPSULE.DR PO SCH ×2 (09:00→09:03)
[2016-11-10] MEDS: MULTIVITAMINS,THERAPEUTIC TABLET PO SCH (09:01)
[2016-11-10] MEDS: ADVAIR INH SCH ×2 (09:01→17:08)
[2016-11-10] MEDS: CLOPIDOGREL 75 MG TABLET PO SCH (09:02)
[2016-11-10] MEDS: buPROPion XL 150 MG TAB.SR.24H PO SCH (09:03)
[2016-11-10] MEDS: FLOVENT 110 MCG INH PRN ×2 (09:06→17:08)
[2016-11-10] MEDS: DIPHENOXYLATE HCL/ATROP SULF TABLET PO PRN (09:10)
[2016-11-10] MEDS: ACETAMINOPHEN 325 MG TABLET PO PRN ×2 (09:22→23:06)
--- NOTE | 2016-11-10 11:31 | NUR ---
Denial Management Representative: SW met with patient and daughter at bedside to assess needs and provide support. Pt is an 80-year-old female who was transferred from [facility] to [facility] for CHF. Per pt's daughter, Lani the pt was admitted for various medical issues. Per chart, the pt was admitted to ARU specifically for functional decline and impaired mobility. SW mainly spoke with pt's daughter who provided collateral. Per daughter, the pt has always been independent prior to hospitalization. She stated the the pt has had a hx of medical issues, however she has managed to always recuperate and continue to ambulate for herself. Per daughter, the pt is able to drive and ambulate for herself. Pt's plan is to return back home and will benefit from additional caregiving at home. Pt's goal is to return back home. She expressed that she has been hospitalized for two weeks now, and verbalized she would like to return home soon. SW explained the importance of complying with rehab goals in order to return home once stable. Pt and daughter reported they may have a caregiving resource in mind, but agreed to additional referrals in order to plan for a safe transition home. Pt appeared resistant to caregiving resources, however at the end of interview agreed. Pt and daughter were also receptive to additional home health services at home if needed. Pt has a strong family support. SW provided supportive counseling to deal with patients depressive symptoms related to her decline in functioning. SW encouraged pt to comply with rehab goals. SW engaged in active listening and emotional support. SW will provided linkage to community resources (case management and caregiving referrals).
--- NOTE | 2016-11-10 13:44 | NUR ---
TEAM CONFERENCE MEETING 11/10/16
--- NOTE | 2016-11-10 18:16 | NUR ---
PT. OOB ALL SHIFT. PT/OT TX TODAY. AMBULATES WITH WALKER WITH SBA. FAIR TO GOOD APPETITE. LEFT FOREARM VASCULAR DOPPLER PERFORMED TODAY. HARRIS ERAZO AWARE OF [facility] SWELLING. PT. ENCOURAGED TO ELEVATE FEET THROUGHOUT SHIFT. TEAM CONFERENCE TODAY. FAMILY PRESENT. NO ACUTE DISTRESS NOTED.
[2016-11-10] MEDS: CEFTRIAXONE 1 G in IV DEXTROSE 5% 50 ML IV SCH (20:21)
[2016-11-10] MEDS: TRAZODONE 50 MG TABLET PO SCH (20:22)
[2016-11-10] MEDS: ATORVASTATIN 10 MG TABLET PO SCH (20:22)
[2016-11-10 20:24] VITALS: BP 133/73
[2016-11-11] MEDS: ACETAMINOPHEN 325 MG TABLET PO PRN ×2 (05:51→21:44)
[2016-11-11] MEDS: ACIDOPHILUS/BULGARICUS CHEW TAB PO SCH ×3 (05:51→21:49)
--- NOTE | 2016-11-11 06:18 | NUR ---
pt continue with antibiotics, urostomy draining well 800cc overnight. no significant changes,vss,afebrile,all needs attended.call light at reached.
--- NOTE | 2016-11-11 07:32 | NUR ---
midline flushes well but unable to draw blood, pt refused peripheral blood draw.
--- NOTE | 2016-11-11 08:00 | NUR ---
Patient received from retail shift supervisor RN. Patient resting comfortably in bed, no signs of acute distress noted. VS WNL, no complaints of pain at this time. Midline Picc on CHARLIE, patent and intact. All safety and fall precautions maintained. Call light within reach.
[2016-11-11 08:23] VITALS: BP 123/64
[2016-11-11] MEDS: DIPHENOXYLATE HCL/ATROP SULF TABLET PO PRN (09:27)
[2016-11-11] MEDS: DULOXETINE 30 MG CAPSULE.DR PO SCH (09:27)
[2016-11-11] MEDS: buPROPion XL 150 MG TAB.SR.24H PO SCH (09:27)
[2016-11-11] MEDS: MULTIVITAMINS,THERAPEUTIC TABLET PO SCH (09:27)
[2016-11-11] MEDS: ADVAIR INH SCH ×2 (09:28→16:37)
[2016-11-11] MEDS ORDERED: LEVOFLOXACIN 500 MG TABLET PO SCH (13:30)
[2016-11-11] MEDS ORDERED: LEVOFLOXACIN 250 MG TABLET PO SCH ×3 (13:45→20:00)
[2016-11-11] MEDS ORDERED: DIPHENOXYLATE HCL/ATROP SULF TABLET PO PRN (19:00)
--- NOTE | 2016-11-11 19:33 | NUR ---
Patient refused blood draw this Md stephanie notified.
[2016-11-11] MEDS ORDERED: CEFTRIAXONE 1 G in IV DEXTROSE 5% 50 ML IV SCH (21:00)
[2016-11-11] MEDS: TRAZODONE 50 MG TABLET PO SCH (21:19)
[2016-11-11] MEDS: ATORVASTATIN 10 MG TABLET PO SCH (21:19)
[2016-11-11 22:32] VITALS: BP 146/86
--- NOTE | 2016-11-12 03:35 | NUR ---
pt aaox4; vss; on RA LSC, no s/s of distress;no c.o pain at this time but pt c/o of FINNEGAN. tylenol administered providing some relief. on a cardiac diet; c/o of diarrhea. Lomotil administered as order. urostomy to drainage bag; pt self care and independent; ambulates with fww; seen today by PT and ambulated. generalized bruising noted to BUE secondary phlebotomy. CHARLIE midline iv DC'd; manual pressure and pressure dressing applied. pt tolerated will. dressing and skin kept clean dry and intack. no c.o pain at this time but pt c/o of FINNEGAN. tylenol administered providing some relief.POC discussed with pt, bed in low position and call light kept within reach. will continue to monitor. Addendum: 11/12/16 at 0433 by TAMIKO MENDOZA RN pt aaox4; vss; on RA LSC, no s/s of distress;no c.o pain at this time but pt c/o of FINNEGAN earlier. tylenol administered providing some relief. on a cardiac diet; c/o of diarrhea. Lomotil administered as order. urostomy to drainage bag; pt self care and independent; ambulates with fww; seen today by PT and ambulated. generalized bruising noted to BUE secondary to phlebotomy. CHARLIE midline iv DC'd; manual pressure and pressure dressing applied. pt tolerated will. dressing and skin kept clean dry and intack. no c.o pain at this time but pt c/o of FINNEGAN. tylenol administered providing some relief.POC discussed with pt, bed in low position and call light kept within reach. will continue to monitor. Addendum: 11/12/16 at 0638 by TAMIKO MENDOZA RN 11/12/2016 0548: pt c/o severe FINNEGAN, stiff neck, nausea and vomitting. bp 165/93 hr75 t 97.8 [id number] Sp02 96% on RA. Oncall physician notified and orders received. pt in CT at this time. will endorse to oncoming shift to call back Dr. Reyes with results of stat CT of the head.
[2016-11-12] MEDS: ACIDOPHILUS/BULGARICUS CHEW TAB PO SCH (05:22)
[2016-11-12] MEDS: ACETAMINOPHEN 325 MG TABLET PO PRN ×2 (05:22→10:34)
--- NOTE | 2016-11-12 08:00 | NUR ---
Received patient awake, alert, verbally responsive, coherent, afebrile, not in any form of acute distress. She denies any pain or discomfort at this time. Environmental safety check done. Assisted to her needs. Call light placed within reach.
[2016-11-12 08:39] VITALS: BP 143/81
--- NOTE | 2016-11-12 09:00 | NUR ---
Notified Dr. Slaughter regarding episode of increased BP from plant operator/shift supervisor and CT scan result done today as well as patient's concern of wanting to put back her previous BP med Maxzide 75/50mg 1/2 tab daily. MD ordered may give such medication with same previous dose and frequency. Patient made aware. Order carried out. VS: BP 143/81, P 68, RR 18, T 97.3, SpO2 97%.
[2016-11-12] MEDS: ADVAIR INH SCH (09:23)
[2016-11-12] MEDS: MULTIVITAMINS,THERAPEUTIC TABLET PO SCH (09:23)
[2016-11-12] MEDS: DULOXETINE 30 MG CAPSULE.DR PO SCH (09:23)
[2016-11-12] MEDS: CLOPIDOGREL 75 MG TABLET PO SCH (09:23)
[2016-11-12] MEDS: buPROPion XL 150 MG TAB.SR.24H PO SCH (09:25)
[2016-11-12] MEDS ORDERED: TRIAMTERENE/HCTZ 75-50 MG TABLET PO SCH (10:00)
[2016-11-12] MEDS ORDERED: ACID1TAB4 PO (11:25)
[2016-11-12] MEDS ORDERED: LEVO250T2 PO (11:25)
[2016-11-12] MEDS ORDERED: DIPH1TAB PO (11:25)
--- NOTE | 2016-11-12 13:00 | NUR ---
Patient expressed the desire to go home. Notified Hilda Quiles NP who is in the unit and stated at medical standpoint patient is ok to go home. Informed Dr. Lund and per MD patient is ok for discharge to home. Order carried out. SHEET METAL ROOFER did med recon and prescription. Discharge instructions and discharge papers including prescription provided to the patient. Daughter Lani made aware. All belongings provided to patient including meds from home. Assisted patient to the parking lot by JOSEPH via wheelchair. Patient picked up by Joie Freedman via private car. Patient remains alert, verbally responsive. coherent, afebrile, not in any form of acute distress. She denies any pain or discomfort at this time. Addendum: 11/12/16 at 1322 by RENO LEE RN Discharged patient to home with [employer].
== END 2016-11-12 13:00 | disposition home health service (06) | DRG 291 ==
LOC: SRC1 16:30 → UNDOADMIN 16:30
PROVIDERS: ADMIT Physical Medicine & Rehabilitation Pain Medicine; ATTEND Physical Medicine & Rehabilitation Pain Medicine
DX: I13.0 Hypertensive heart and chronic kidney disease with heart failure and stage 1 through stage 4 chronic kidney disease, or unspecified chronic kidney disease (principal); G92 Toxic encephalopathy; N17.9 Acute kidney failure, unspecified; N39.0 Urinary tract infection, site not specified; N13.30 Unspecified hydronephrosis; I50.32 Chronic diastolic (congestive) heart failure; T82.868A Thrombosis due to vascular prosthetic devices, implants and grafts, initial encounter; N18.9 Chronic kidney disease, unspecified; G43.909 Migraine, unspecified, not intractable, without status migrainosus; Z85.51 Personal history of malignant neoplasm of bladder; I25.10 Atherosclerotic heart disease of native coronary artery without angina pectoris; M19.90 Unspecified osteoarthritis, unspecified site; Z87.440 Personal history of urinary (tract) infections; Z87.891 Personal history of nicotine dependence; I48.0 Paroxysmal atrial fibrillation; K21.9 Gastro-esophageal reflux disease without esophagitis; G89.29 Other chronic pain; M54.9 Dorsalgia, unspecified; R26.9 Unspecified abnormalities of gait and mobility; R53.1 Weakness; E78.5 Hyperlipidemia, unspecified; B96.1 Klebsiella pneumoniae [K. pneumoniae] as the cause of diseases classified elsewhere; Y83.8 Other surgical procedures as the cause of abnormal reaction of the patient, or of later complication, without mention of misadventure at the time of the procedure; Y92.239 Unspecified place in hospital as the place of occurrence of the external cause
CPT/HCPCS: 36415; 70450; 83735; 84100; 85025; 92523; 97110; 97112; 97116; 97161; 97530; A4663; J0696; J2543; J7050; J7060